=== PATIENT | male | born 1965 | race Caucasian/White ===

== ENCOUNTER 2022-02-14 09:01 | Outpatient (CLI) | payer OTHER, SELFPAY ==
[2022-02-14 10:45] LABS: Albumin* 4.6 g/dL (3.3-5.0); Chloride* 103 mmol/L (96-114)
[2022-02-14 10:46] LABS: Potassium* 4.1 mmol/L (3.6-5.1); Sodium* 138 mmol/L (135-149)
[2022-02-14 10:48] LABS: Aspartate Amino Transferase* 24 U/L (12-35); Bilirubin Total* 0.7 mg/dL (0.1-1.5); Blood Urea Nitrogen* 15 mg/dL (7-30); Carbon Dioxide* 29 mmol/L (20-32); Cholesterol* 182 mg/dL (90-199); Creatinine* 0.8 mg/dL (0.5-1.5); Estimated Glomerular Filt Rate 105 ml/min; Glucose* 100 mg/dL (60-115); Total Protein* 7.1 g/dL (6.0-8.3)
[2022-02-14 10:49] LABS: Alanine Aminotransferase* 20 U/L (4-50); Alkaline Phosphatase* 87 U/L (40-150); HDL Cholesterol* 44 mg/dL (>=40); LDL Cholesterol Calculated 114 mg/dL (<100); Triglycerides* 118 mg/dL (40-149)
[2022-02-14 11:21] LABS: PSA Screen* 1.07 ng/mL (0.10-4.00)
== END 2022-02-14 09:02 | disposition home or self-care (01) ==
PROVIDERS: PCP Family Medicine; Visit Provider Family Medicine
DX: E78.5 Hyperlipidemia, unspecified (principal); Z12.5 Encounter for screening for malignant neoplasm of prostate; Z79.899 Other long term (current) drug therapy
CPT/HCPCS: 80053; 80061; 84153

== ENCOUNTER 2022-06-26 09:10 | Outpatient (REF) | payer OTHER, SELFPAY ==
[2022-06-29 15:49] LABS: Sex Hormone Binding Globulin 25 nmol/L (19-76); Testosterone, Free LC-MS/MS 91.5 pg/mL (47.0-244.0); Testosterone, LC-MS/MS 429 ng/dL (300-890)
== END 2022-06-26 09:11 | disposition home or self-care (01) ==
LOC: NPINS 09:10
PROVIDERS: PCP Family Medicine; Visit Provider Urology
DX: R68.82 Decreased libido (principal)
CPT/HCPCS: 84270; 84402; 84403

== ENCOUNTER 2023-02-07 07:43 | Outpatient (CLI) | payer OTHER, SELFPAY | END 2023-02-07 07:44 | disposition home or self-care (01) | LOC: NFLDREF 02-11 10:06 | PROVIDERS: PCP Family Medicine; Referring Provider Family Medicine; Visit Provider Family Medicine | DX: E78.5 Hyperlipidemia, unspecified (principal); Z12.5 Encounter for screening for malignant neoplasm of prostate | CPT/HCPCS: 80053; 80061; 84153 ==

== ENCOUNTER 2023-06-07 11:29 | Outpatient (CLI) | payer OTHER, SELFPAY ==
--- OUTSIDE RECORDS SUMMARY | 2023-06-10 12:46 | XMS_ITS | Clinical Summary ---
Author Name Unknown Organization [facility] [employer] [facility] [employer] Address [place], [place] [address] Care Team Providers Care Recycling Technician Name Role Phone Dada Corrales MD Primary Care Provider [phone] Allergies Active Allergy Reactions Criticality Noted Date Comments Penicillins *Unknown 07/30/2016 Medications Medication Sig Dispensed Refills Start Date End Date Status propranolol (INDERAL) 10 mg tablet 3 tablets one time. As needed for public speaking 0 07/11/2016 Active HYDROcodone-acetamin ophen, 5-325 mg, (NORCO) per tablet Take 1 tablet by mouth one time if needed Takes at bedtime as needed 0 07/10/2016 Active oxybutynin (DITROPAN) 5 mg tabletIndications:Ur inary frequency TAKE 1 TABLET BY MOUTH DAILY 90 tablet 0 06/26/2017 Active fluticasone (50 mcg per actuation) nasal solution (FLONASE) INL 1 SPRAY IEN BID 0 09/10/2018 Active oxybutynin XL (DITROPAN XL) 5 mg CR tabletIndications:Ur inary frequency Take 1 tablet by mouth once daily. 90 tablet 3 06/15/2019 Active Active Problems Problem Noted Date Diagnosed Date Microscopic hematuria 10/08/2016 Urinary frequency 07/30/2016 Encounters Date Type Department Care Team Description 05/24/2023 Telephone [facility] [address] [place] [address] Dada Corrales MD Error-please disregard from Last 3 Months Social History Tobacco Use Types Packs/Day Years Used Date Smoking Tobacco: Former Cigarettes Smokeless Tobacco: Never Tobacco Cessation:Counseling Given: Yes Comments:quite about 20 years ago Alcohol Use Standard Drinks/Week Comments Not Currently 1 (1 standard drink = 0.6 oz pur e alcohol) twice a year a glass of wine Sex and Gender Information Value Date Recorded Sex Assigned at Not on file Gender Identity Not on file Sexual Orientation Not on file Obstetrics History Last Filed Vital Signs Vital Sign Reading Time Taken Comments Blood Pressure 152/96 06/15/2019 3:01 PM CATH LAB TECH Pulse 56 06/15/2019 3:01 PM CATH LAB TECH Temperature 37.3 ??C (99.2 ??F) 04/16/2018 2 :54 PM CATH LAB TECH Respiratory Rate 16 06/15/2019 3:01 PM CATH LAB TECH Oxygen Saturation 99% 06/15/2019 3:0 1 PM CATH LAB TECH Inhaled Oxygen Concentration - - Weight 82.6 kg (182 lb 1.6 oz) 06/15/2019 3:01 PM CATH LAB TECH Pt weighed with shoes on. Height 182.9 cm (6') 04/15/2017 8:18 AM CATH LAB TECH Body Mass Index 24.7 04/15/2017 8:18 AM CATH LAB TECH Plan of Treatment Health Maintenance Due Date Last Done Comments COVID-19 vaccine series (#1) 1967 Tdap 1978 Depression screening for age 12+ 1979 HIV for age 15-65 1982 Hepatitis C screening for ag e 18-79 1985 Tetanus booster 1987 Colonoscopy through age 75 02/26/2012 Lipids for age 45-75 02/26/2012 Zoster (shingles) series for age 50+ (1 of 2) 2017 BMI (ht and wt on same day) for age 18+ 04/15/2018 04/15/2017, 07/30/2016 Influenza for age 50-64 01/18/2023 Pneumococcal series for age 6-64 Aged Out No longer eligible b ased on patient's age to complete this topic Care Teams Recycling Technician Relationship Specialty Start Date End Date Dada Corrales MD [address] [place] [address] PCP - General Family Practice 07/30/16
== END 2023-06-07 11:30 | disposition home or self-care (01) ==
LOC: NFLDREF 06-10 12:40
PROVIDERS: PCP Family Medicine; Referring Provider Family Medicine; Visit Provider Family Medicine
DX: H11.421 Conjunctival edema, right eye (principal); Z13.29 Encounter for screening for other suspected endocrine disorder
CPT/HCPCS: 83520; 84439; 84443; 84445; 84481

== ENCOUNTER 2023-07-01 08:00 | Outpatient (RCR) | payer OTHER, SELFPAY ==
--- NOTE | 2023-06-11 16:47 | OT.OPOE ---
OT Outpatient Ortho Eval OT Outpatient Ortho Eval* Start: 06/11/23 16:03 Freq: Status: Active Protocol: Document 06/11/23 16:03 STEVIE (Rec: 06/11/23 16:31 LCN [id number]) E-signed By Kassidy Garcia, OTR/L, CLT OT OP Ortho Eval Details Complexity Complexity Low Insurance Information Insurance Information [facility] History/Precautions Current Condition/Medical Diagnosis Referring Provider Dada Corrales Treatment Diagnosis B thumb pain Date of Onset 05/27/23 Other Conditions seasonal allergies. DDD, chronic low back pain and cervicalgia with prior PT. Hyperlipidemia. Ocular migraines. Removal of L shoulder bone spurs/ osteophytes 2014. H/O L lateral epicondylitis. 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 Still having daily 2-4/ 10 level pain during twisting bottle caps, lifting wide files/books in single hand, chopping vegetables, pushing heavy drawers, pinching hold on books while reading. Pain Assessment Pain Present Pain Present Pain Reported Range of Motion and Strength Hand/Finger/Thumb Range of Motion and Strength Hand/Finger/Thumb Range of Motion and WNL ROM for B SH, elbows, Strength wrist planes. Full hook/ table /rolled fist. Opposition tender at 10/10 on Kepangi scale ( MP to CMC 2/10 pressure), no pain with retropulsion, family preservation caseworker or terrell pinch. Pain with 3 pt pinch MP to CMC 2/10 pressure R and 4/10 on L, Z pattern during pinch and strength is 1.5 SD BNL with his pain. Wood Cabinet Finisher is 1 SD BNL possibly antalgic/guarding. Resting position is Z deformity hyper flex of MP, hyper ext of IP; hyperflexes IP to 90 during pinching. Was hypermobile at thumbs and wrists (touching TH to forearm ) as a kid. Moderate squaring at CMC and Heberden's nodes at MP. Tissue texture is gritty surrounding CMC, MP and thick bandlike at B web spaces. Hand Pinch/Wood Cabinet Finisher Strength Hand Left Wood Cabinet Finisher Strength Position 1 (lbs) 84 Wood Cabinet Finisher Strength Position 2 (lbs) 100 Lateral Pinch Strength (lbs) 23 Three Point Pinch (lbs) 18 Right Wood Cabinet Finisher Strength Position 1 (lbs) 81 Wood Cabinet Finisher Strength Position 2 (lbs) 90 Lateral Pinch Strength (lbs) 24 Three Point Pinch (lbs) 19 Upper Extremity Special Tests Tenosynovitis Wrist Finklestein Test Negative Left,Negative Right Degenerative Arthritis Hand Trapeziometacarpal Joint Grind Test Positive Left,Positive Right Upper Extremity Special Tests Comments Comments slight stretch at R Angela's EPL tendon. OT Problems Problems Problems Decreased Strength,Decreased Range of Motion,Pain,Lifting, Gripping,Pinching Problems Comments pain with kavya, pottery Other Problems Opening Containers,Fasteners Patient Potential Excellent Assessment Assessment Assessment With Praveen's osseous changes at B CMC, MP edema, pain, ROM and strength loss of B thumbs limiting daily tasks, he would benefit from skilled OT to address these areas. 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 Occupational Therapy Treatment Plan - OP Potential Rehabilitation Potential Excellent Set Goals Goals Set with Patient Yes Goals Goals In 8 weeks, Praveen will demonstrate:? 1) Decreased pn to <2/10 80% of the time with sustained gripping, lifting files, reading books and chopping vegetables. 2) I HEP for stretching, gradual strengthening and self mgmt strategies. 3) improved B family preservation caseworker strength to 95# and 3 pt pinch to 20# with L thumb pain < 1/10. 4)??Pt to be fit with functional bracing (for CMC/MP ,) and use adaptive strategies to protect joint integrity to support less pain with ADL. Treatment Plan Treatment Plan Evaluation,Edema Control,Joint Mobilization,Manual Therapy, Splinting,Ultrasound, Therapeutic Exercise,Self Care /Home Management,Education Expected Frequency 1-2x Week Expected Duration 4-6 Weeks Home Program Home Program Home Program Initiated Home Program Specifics Oval 8 size 13 splints for use during daytime heavy tasks and TH joint blocking to AROM glide exercises
--- NOTE | 2023-07-01 16:36 | OT.OPODN ---
OT Outpatient Ortho Daily Note OT Outpatient Ortho Daily Note* Start: 06/11/23 16:03 Freq: Status: Active Protocol: Document 07/01/23 11:56 LCN (Rec: 07/01/23 12:12 LCN [id number]) E-signed By Kassidy Garcia, OTR/L, CLT Type of Note Type of Note Type of Note Daily Note Visit Number 5 Insurance Information Insurance Information [facility] History/Precautions Current Condition/Medical Diagnosis Referring Provider Dada Corrales Treatment Diagnosis B thumb pain Date of Onset 05/27/23 Other Conditions seasonal allergies. DDD, chronic low back pain and cervicalgia with prior PT. Hyperlipidemia. Ocular migraines. REmoval of L shoulder bone spurs/ osteophytes 2014. H/O L lateral epicondylitis. 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 Has modified how he lifts things in the library archives. Pt agrees he is ready for OT d/c at this time, but will will leave his account open for 60 days. Pain Assessment Pain Present Pain Present Pain Reported OT OP Daily Ortho Note/Assessment Manual Therapy Manual Therapy Minutes (minutes) 15 Manual Therapy Comments OTR cont w IASTM with Graston #6 to mobilize soft tissue surrounding joint capsule,? ligament structures and muscle groups to support freedom of movement and healing of structures of R and L CMC, MP, IP webspace areas. LLPS at each joint level. Self-Care/Home Management Self-Care/Home Management Minutes ( 16 minutes) Self-Care/Home Management Comments Reveiwed self mgmt strategies for flare ups. (contrast baths , joint glidse, stetches, use splint more) Pt instructed in self IASTM using home based tool and thicker cream?(for longitudinal fibers, circular around bony prominences/ridges of gritty tissue/prox to MP/ CMC and cross fiber, micronodules tender at CMC base and at MP margins, do <? 10-15 min at a time. QOD, be mindful of pressure, avoid if already tender). Able to return self technique with good safe angle 30 degrees. Reviewed principles of joint protection using hand out, use of large tools instead of small joints, larger body joints, thumbs up positions, avoiding excessive ulnar deviation, wringing or carrying dangling loads/ handled bags for extended periods, and use of CMC stabilizer splints to support externally/reduce muscle overfiring around CMC joints. Introduced to ratcheCrowdcast pruners, azeri handled gardening tools, mechanical jar fiberglass ski maker, package opening set. Ultrasound Ultrasound Minutes (minutes) 8 Ultrasound Location & Joint Position L MP to CM web spaces, open Ultrasound Frequency & Mode 1 MHz Pulsed Intensity (w/cm2) 1.7 Ultrasound Comments as needed to support reduction of edema for tissue healing, improved circulation and tissue mobility. Total Occupational Therapy Time Occupational Therapy Minutes 39 Home Program Home Program Home Program Compliant Home Program Specifics 06/24/23--adductor releases with ship clip and WR EX paryaer4 stretch, [place]= UD stretch for B wrists 06/19/23-- contrast baths, CMC ADD web space stretches. Oval 8 size 12 splints for use during daytime heavy tasks and TH joint blocking to AROM glide exercises Range of Motion and Strength Hand/Finger/Thumb Range of Motion and Strength Hand/Finger/Thumb Range of Motion and WNL ROM for B SH, elbows, Strength wrist planes. Full hook/ table /rolled fist. Opposition tender at 10/10 on Kepangi scale ( MP to CMC 2/10 pressure), no pain with retropulsion, supervisor shrimp pond or terrell pinch. Pain with 3 pt pinch MP to CMC 2/10 pressure R and 4/10 on L, Z pattern during pinch and strength is 1.5 SD BNL with his pain. Marine Firer is 1 SD BNL possibly antalgic/guarding. Resting position is Z deformity hyper flex of MP, hyper ext of IP; hyperflexes IP to 90 during pinching. Was hypermobile at thumbs and wrists (touching TH to forearm ) as a kid. Moderate squaring at CMC and Heberden's nodes at MP. Tissure texture is gritty surrounding CMC, MP and thick bandlike at B web spaces. Hand Pinch/Marine Firer Strength Hand Left Marine Firer Strength Position 1 (lbs) 95 Marine Firer Strength Position 2 (lbs) 105 Lateral Pinch Strength (lbs) 23 Three Point Pinch (lbs) 23 Right Marine Firer Strength Position 1 (lbs) 90 Marine Firer Strength Position 2 (lbs) 90 Lateral Pinch Strength (lbs) 25 Three Point Pinch (lbs) 21 Upper Extremity Special Tests Tenosynovitis Wrist Finklestein Test Negative Left,Negative Right Degenerative Arthritis Hand Trapeziometacarpal Joint Grind Test Positive Left,Positive Right Upper Extremity Special Tests Comments Comments slight stretch at R Angela's EPL tendon. OT Problems Problems Problems Decreased Strength,Decreased Range of Motion,Pain,Lifting, Gripping,Pinching Problems Comments pain with kavya, pottery Other Problems Opening Containers,Fasteners Patient Potential Excellent Assessment Assessment Assessment Pt ready for d/c per goals met above. With Praveen's osseous changes at B CMC, MP edema, pain, ROM and strength loss of B thumbs limiting daily tasks, he would benefit from skilled OT to address these areas. Pt did benefit from OTC thumb spica splints at first ( may have had some tendon issues at that point) and now having OA pattern changes in B thumbs. Occupational Therapy Treatment Plan - OP Potential Rehabilitation Potential Excellent Set Goals Goals Set with Patient Yes Goals Goals After 5 visits of OT, Praveen will demonstrates:? 1) Decreased pn to <2/10 80% of the time with sustained gripping, lifting files, reading books and chopping vegetables. GOAL MET 07/01/23, 0/10 PN with Marine Firer and Pinch B hands. 2) I HEP for stretching, gradual strengthening and self mgmt strategies. 3) improved B supervisor shrimp pond strength to 95# and 3 pt pinch to 20# with L thumb pain < 1/10. GOAL MET per above 07/01/23 4)??Pt to be fit with functional bracing (for CMC/MP ,) and use adaptive strategies to protect joint integrity to support less pain with ADL. GOAL MET per above-- responded well to Oval 8 correction of IP flexion pattern size 12's issued for B sides. Treatment Plan Treatment Plan Evaluation,Edema Control,Joint Mobilization,Manual Therapy, Splinting,Ultrasound, Therapeutic Exercise,Self Care /Home Management,Education Expected Frequency 1-2x Week Expected Duration 4-6 Weeks Comment Summary D/C from OT today, but will hold chart open through 08/29/23 pending return to gardening tasks. Occupational Therapy Billing Units Treatment Minutes Timed Treatment Minutes 39 Total Treatment Minutes 39 Billing Units Manual Therapy 1 Self Care/Home Management 1 Ultrasound 1 Discharge Note Discharge Note Discharge Summary per above goal section Date of First Visit for Therapy 06/11/23 Date of Last Visit for Therapy 07/01/23 Initial Primary Functional Limitations/ Praveen Danii DOMINGO is an active 58 y Concerns /o male who started having B MP to CMC thumb pain after return to fall video kavya season on his Nintendo Switch and starting wearing braces on one side for 3 weeks, then the other side. Still having daily 2-4/ 10 level pain during twisting bottle caps, lifting wide files/books in single hand, chopping vegetables, pushing heavy drawers, pinching hold on books while reading. Interventions Provided During Treatment Evaluation,Edema Control,Joint Mobilization,Manual Therapy, Splinting,Ultrasound, Therapeutic Exercise,Self Care /Home Management,Education Recommendations/Reason for Discharge Met All Therapy Goals
== END 2023-10-29 23:59 | disposition home or self-care (01) ==
PROVIDERS: PCP Family Medicine; Visit Provider Family Medicine
DX: M79.641 Pain in right hand (principal); M79.642 Pain in left hand; M79.645 Pain in left finger(s); M79.644 Pain in right finger(s); Z51.89 Encounter for other specified aftercare
CPT/HCPCS: 97035; 97110; 97140; 97165; 97530; 97535; X5282

== ENCOUNTER 2023-07-03 07:58 | Outpatient (CLI) | payer OTHER, SELFPAY ==
--- OUTSIDE RECORDS SUMMARY | 2023-07-03 08:01 | XMS_ITS | Clinical Summary ---
Author Name Unknown Organization [facility] & [facility] [employer] Address [place], [place] [address] Care Team Providers Care Court Commissioner Name Role Phone Dada Corrales MD Primary Care Provider [phone] Allergies Active Allergy Reactions Criticality Noted Date [...] Type Department Care Team Description 05/24/2023 Telephone [facility] [address] [place] [address] Dada Corrales MD Error-please disregard from Last [...] Comments Blood Pressure 152/96 06/15/2019 3:01 PM BARIATRIC PROGRAM COORDINATOR Pulse 56 06/15/2019 3:01 PM BARIATRIC PROGRAM COORDINATOR Temperature 37.3 ??C (99.2 ??F) 04/16/2018 2 :54 PM BARIATRIC PROGRAM COORDINATOR Respiratory Rate 16 06/15/2019 3:01 PM BARIATRIC PROGRAM COORDINATOR Oxygen Saturation 99% 06/15/2019 3:0 1 PM BARIATRIC PROGRAM COORDINATOR Inhaled Oxygen Concentration - - Weight 82.6 kg (182 lb 1.6 oz) 06/15/2019 3:01 PM BARIATRIC PROGRAM COORDINATOR Pt weighed with shoes on. Height 182.9 cm (6') 04/15/2017 8:18 AM BARIATRIC PROGRAM COORDINATOR Body Mass Index 24.7 04/15/2017 8:18 AM BARIATRIC PROGRAM COORDINATOR Plan of Treatment Health Maintenance Due Date [...] age to complete this topic Care Teams Court Commissioner Relationship Specialty Start Date End Date Dada Corrales MD [address] [place] [address] PCP - General Family Practice 07/30/16
--- NOTE | 2023-07-03 08:15 | MR_ITS ---
Final Report Patient: KATRINA NAIK III Facility:?[facility] Patient ID:?[id number] Site Patient ID:?[id number]. Site :?[id number] Study:?MRI Orbits W/ and W/O Cont 20 CC DOATERM-07/03/2023 9:40:59 AM Ordering Physician:MARTHA MURILLO Final Report: INDICATION: Conjunctival edema. TECHNIQUE: Multiplanar multisequence MR imaging of the orbits prior to and following intravenous contrast. COMPARISON: None. FINDINGS: The extra-ocular muscles and lacrimal glands are symmetric in size and enhancement. No intraorbital mass or edema. No signal abnormality or pathologic enhancement within the optic nerves. No mass effect on the optic chiasm. The globes are symmetric. Limited images through the brain are without pathologic intracranial enhancement. IMPRESSION: Unremarkable MRI of the orbits. Dictated by Darvin Nowak MD @ 07/09/2023 10:05:58 AM (Electronic Signature)
== END 2023-07-03 07:59 | disposition home or self-care (01) ==
LOC: MRI 08:00
PROVIDERS: PCP Family Medicine; Visit Provider Family Medicine
DX: H11.421 Conjunctival edema, right eye (principal)
CPT/HCPCS: 70543; A9575

== ENCOUNTER 2024-03-03 07:30 | Outpatient (CLI) | payer OTHER, SELFPAY ==
--- OUTSIDE RECORDS SUMMARY | 2024-03-03 15:56 | XMS_ITS | Clinical Summary ---
Author Organization [facility] [employer] Address [place], [place] [address] Care Team Providers Care Assistant Film Editor Name Role Phone Dada Corrales MD Primary Care Provider [phone] Allergies Active Allergy Reactions Criticality Noted Date Comments Penicillins *Unknown 07/30/2016 Medications Medication Sig Dispensed Refills Start Date End Date Status propranolol (INDERAL) 10 mg tablet 3 tablets one time. As needed for public speaking 07/11/2016 Active HYDROcodone-acetamin ophen, 5-325 mg, (NORCO) per tablet Take 1 tablet by mouth one time if needed Takes at bedtime as needed 07/10/2016 Active oxybutynin (DITROPAN) 5 mg tabletIndications:Ur inary frequency TAKE 1 TABLET BY MOUTH DAILY 90 tablet 06/26/2017 Active fluticasone (50 mcg per actuation) nasal solution (FLONASE) INL 1 SPRAY IEN BID 09/10/2018 Active oxybutynin XL (DITROPAN XL) 5 mg CR tabletIndications:Ur inary frequency Take 1 tablet by mouth once daily. 90 tablet 3 06/15/2019 Active Active Problems Problem Noted Date Diagnosed Date Microscopic hematuria 10/08/2016 Urinary frequency 07/30/2016 Social History Tobacco Use Types Packs/Day Years [...] Comments Blood Pressure 152/96 06/15/2019 3:[address] Pulse 56 06/15/2019 3:[address] Temperature 37.3 ??C (99.2 ??F) 04/16/2018 2 :[address] Respiratory Rate 16 06/15/2019 3:[address] Oxygen Saturation 99% 06/15/2019 3:0 [address] Inhaled Oxygen Concentration - - Weight 82.6 kg (182 lb 1.6 oz) 06/15/2019 3:[address] Pt weighed with shoes on. Height 182.9 cm (6') 04/15/2017 8:[address] Body Mass Index 24.7 04/15/2017 8:18 [address] Plan of Treatment Health Maintenance Due Date Last Done Comments Tdap 1978 Depression screening for age 12+ 1979 HIV for age 15-65 1982 Hepatitis C screening for ag e 18-79 1985 Tetanus booster 1987 Colonoscopy through age 75 02/26/2012 Lipids for age 45-75 02/26/2012 Zoster (shingles) series for age 50+ (1 of 2) 2017 BMI (ht and wt on same day) for age 18+ 04/15/2018 04/15/2017, 07/30/2016 COVID-19 vaccine series (2023- season) 2024 Influenza for age 50-64 01/19/2024 Pneumococcal series for age 6-64 Aged Out No longer eligible b ased on patient's age to complete this topic Care Teams Assistant Film Editor Relationship Specialty Start Date End Date Dada Corrales MD [address] [place] [address] PCP - General Family Practice 07/30/16
== END 2024-03-03 07:31 | disposition home or self-care (01) ==
LOC: NFLDREF 15:54
PROVIDERS: PCP Family Medicine; Referring Provider Family Medicine; Visit Provider Family Medicine
DX: E78.5 Hyperlipidemia, unspecified (principal); Z12.5 Encounter for screening for malignant neoplasm of prostate
CPT/HCPCS: 80053; 80061; G0103

== ENCOUNTER 2024-06-25 11:30 | Outpatient (RCR) | payer BC, SELFPAY | END 2024-08-05 13:32 | disposition home or self-care (01) | PROVIDERS: PCP Family Medicine; Visit Provider Orthopaedic Surgery Sports Medicine | DX: M75.112 Incomplete rotator cuff tear or rupture of left shoulder, not specified as traumatic (principal); M25.512 Pain in left shoulder; Z51.89 Encounter for other specified aftercare | CPT/HCPCS: 97110; 97140; 97161 ==

== ENCOUNTER 2024-07-13 07:09 | Outpatient (CLI) | payer BC, SELFPAY | END 2024-07-13 07:10 | disposition home or self-care (01) | LOC: MRI 07:09 | PROVIDERS: PCP Family Medicine; Visit Provider Orthopaedic Surgery Sports Medicine | DX: M25.512 Pain in left shoulder (principal); M75.102 Unspecified rotator cuff tear or rupture of left shoulder, not specified as traumatic; M75.52 Bursitis of left shoulder; M19.012 Primary osteoarthritis, left shoulder | CPT/HCPCS: 73221 ==

== ENCOUNTER 2024-10-07 09:39 | Day surgery (SDC) | payer BC, SELFPAY ==
[2024-10-07] VITALS (16 sets, daily range): BP systolic 130–172; BP diastolic 80–110; PULSE 67–87; RESP 12–17; TEMP 36.3–36.7; O2SAT 91–98; BMI 25.3
[2024-10-07] MEDS: LACTATED RINGERS 1000 ML 1,000 ML 100 ML IV ×2 (09:45→14:00)
--- NOTE | 2024-10-07 10:11 | W.PM.H&PU ---
History & Physical Update History & Physical Update H&P Reviewed and patient assessed: No changes noted
[2024-10-07] MEDS: SODIUM CHLORIDE 0.9 % (FLUSH) 10 ML SYRINGE IVF (10:19)
[2024-10-07] MEDS: MIDAZOLAM HCL 1 MG/ML inj IVP (12:13)
[2024-10-07] MEDS: fentaNYL 100 MCG/2 ML inj IVP (12:13)
--- NOTE | 2024-10-07 12:16 | P.ANES_ITS ---
Anesthesia Charges Start Date/Time Anesthesia Start Date: 10/07/24 Anesthesia Start Time: 12:33 Stop Date/Time Anesthesia Stop Date: 10/07/24 Anesthesia Stop Time: 14:55 Coding CPT Codes CPT Codes: ANESTH SURGERY OF SHOULDER - 07996 ([id number]) P2 - PATIENT W/MILD SYST DISEASE, QK - CLERK OPERATOR 2-4 CNCRNT ANES PROC, QX - EDI PROGRAMMER SVC W/ MD MED DIRECTION
--- NOTE | 2024-10-07 12:16 | W.PM.NB ---
Nerve Block Nerve Block Time Seen by Provider: 12:15 Date Seen: 10/07/24 Type of block requested by surgeon for post-operative analgesia: supraclavicular Time out performed: Yes Verification of patient name: Yes Verification of date of : Yes Site marking: site marked Name of person performing procedure: Tony Continuous monitoring Was continuous monitoring of O2 sat, B/P, night monitor, recorded every 15 minutes?: Yes Procedure Checklist: sterile prep, needles and gloves Ultrasound guided. Images saved: Yes Medications given in 5ml increments after negative aspiration: Ropivicaine %: 0.5 mL: 20 Needle gauge: 22 Precedex (mcg): 25 Patient tolerated procedure well: Yes Block Charges Block Charge (with Pro Fee): Brachial Plexus Use of Ultrasound Machine for Block: Yes- US Guidance/pain block
--- NOTE | 2024-10-07 12:16 | W.ANESCHARGE ---
Anesthesia Charges Start Date/Time Anesthesia Start Date: 10/07/24 Anesthesia Start Time: 12:33 Stop Date/Time Anesthesia Stop Date: 10/07/24 Anesthesia Stop Time: 14:55 Coding CPT Codes CPT Codes: ANESTH SURGERY OF SHOULDER - 89500 ([id number]) P2 - PATIENT W/MILD SYST DISEASE, QK - STONE HAND 2-4 CNCRNT ANES PROC, QX - PUSH CONNECTOR ASSEMBLER SVC W/ MD MED DIRECTION
--- NOTE | 2024-10-07 12:25 | SUR.PREOP ---
TIME?OUT:?1212 PT/Fifi Nicholson RN/Dr. Tony MDA?VERIFICATION?OF?SURGICAL?SITE left shoulder,?PROCEDURE,?AND?CONSENT OBTAINED?PRIOR?TO?INVASIVE?PROCEDURE.
[2024-10-07] MEDS: CEFAZOLIN 2 GM in 0.9 % SODIUM CHLORIDE Mini-bag 100 ML IVPB (12:48)
--- NOTE | 2024-10-07 12:49 | P.ANES_ITS ---
Anesthesia Charges Start Date/Time Anesthesia Start Date: 10/07/24 Anesthesia Start Time: 12:33 Stop Date/Time Anesthesia Stop Date: 10/07/24 Anesthesia Stop Time: 14:55 Coding CPT Codes CPT Codes: ANESTH SURGERY OF SHOULDER - 63802 ([id number]) P2 - PATIENT W/MILD SYST DISEASE, QK - MANAGER AUTO 2-4 CNCRNT ANES PROC, QX - HEEL COVER SPLITTER SVC W/ MD MED DIRECTION
--- NOTE | 2024-10-07 12:49 | W.ANESCHARGE ---
Anesthesia Charges Start Date/Time Anesthesia Start Date: 10/07/24 Anesthesia Start Time: 12:33 Stop Date/Time Anesthesia Stop Date: 10/07/24 Anesthesia Stop Time: 14:55 Coding CPT Codes CPT Codes: ANESTH SURGERY OF SHOULDER - 76067 ([id number]) P2 - PATIENT W/MILD SYST DISEASE, QK - DIRECTOR OF PARKS AND RECREATION 2-4 CNCRNT ANES PROC, QX - BLADE SHARPENER SVC W/ MD MED DIRECTION
[2024-10-07] MEDS: EPINEPHrine 1 MG in SODIUM CHLORIDE IRRIG SOLUTION 3,000 ML 9003 MG IRRIGATION ×4 (13:03→14:03)
--- NOTE | 2024-10-07 14:52 | PM.ORPRC ---
Procedure Note Date of procedure: 10/07/24 Procedure: PREOPERATIVE DIAGNOSES: 1. Left shoulder rotator cuff tear. 2. Left shoulder subacromial impingement syndrome. 3. Left shoulder labral tearing (anterior, superior, posterior) POSTOPERATIVE DIAGNOSES: 1. Left shoulder rotator cuff tear - high-grade partial-thickness upper border subscapularis as well as essentially a PASTA supraspinatus rotator cuff tear 2. Left shoulder subacromial impingement syndrome. 3. Left shoulder labral tearing (anterior, superior, posterior) NAME OF OPERATION: 1. Left shoulder arthroscopic rotator cuff repair - upper border subscapularis and high-grade partial-thickness supraspinatus 2. Left shoulder arthroscopic limited glenohumeral debridement 3. Left shoulder arthroscopic bursectomy, subacromial decompression/partial acromioplasty. SURGEON: Brock Machuca MD BIOPHYSICS PROFESSOR: Jered Ramos PA-C. Of note, a skilled video library assistant was critical for this case to aide in patient positioning, suture manipulation, arm positioning, instrument positioning, and closure. ANESTHESIA: General plus preoperative supraclavicular block. EBL: 25 mL IMPLANTS: Arthrex 4.75 mm BioComposite SwiveLock suture anchor (x1); Arthrex 5.5 mm BioComposite SwiveLock suture anchor (x1) Arthrex 2.6 mm knotless FiberTak RC (x2); Arthrex 2.6 mm standard FiberTak RC (x1) COMPLICATIONS: None evident INDICATIONS: The patient is a pleasant, 59-year-old male who has experienced left shoulder pain that has been increasing in recent time. Physical exam and imaging were consistent with a rotator cuff tear. Given their findings, as well as the weakness and pain, and inadequate response to nonoperative management, recommendation was made for surgery. FINDINGS: Exam under anesthesia revealed stable shoulder with excellent range of motion. The diagnostic arthroscopy revealed healthy chondral surfaces of the glenohumeral joint. The Subscapularis tendon was torn from its upper border with mild retraction. The long head of the biceps tendon was overall quite healthy with only mild low-grade partial-thickness tearing both at the origin similar to a type 1 slap tear, as well as at the superior bicipital groove region. The superior rotator cuff tendon was found to be torn and high-grade partial-thickness manner through majority of the tendon. From the joint side we could see it lifting off the greater tuberosity approximately 5-6 mm. From the bursal side the tissue looked to be intact but was very thin and frail especially in the far anterior aspect. The labrum was degenerative frayed and torn anterior, superior, and posterior aspects. No loose bodies were identified within the pouch or subscapularis recess. PROCEDURE: Following a thorough discussion of risks, benefits, and alternatives, consent was obtained and the left shoulder was marked. The patient was brought to the operating room and placed supine on the operating table. Induction of anesthesia was completed after preoperative supraclavicular block was administered in preop holding. Appropriate time out was performed identifying proper patient, site, and procedure. 2 g IV Ancef was administered within 1 hour of incision preoperatively. The left upper extremity was prepped and draped in the appropriate sterile fashion using ChloraPrep prep. This was after the patient was positioned in the beach chair with their head in neutral alignment and all bony prominences well padded. The shoulder was insufflated with 20mL of normal saline via an 18g spinal needle from a posterior approach. An 11 blade skin incision allowed a blunt trochar to be inserted and diagnostic arthroscopy to be performed with the findings as noted above. An anterior portal was established with an outside in technique. This allowed the probe to be inserted and confirm the diagnostic arthroscopic findings. The shaver was then inserted and allowed debridement of the anterior, posterior, and superior labrum. Following this, the upper border subscapularis was repaired after debriding the lesser tuberosity with the shaver and Dille cautery. Subscapularis was captured in horizontal mattress fashion with a fiber tape suture. The tails were brought to a single anchor in the lesser tuberosity with excellent reapproximation of the subscap tendon and good excursion/tension. Thereafter, the subacromial space was entered. Here, a complete bursectomy and partial acromioplasty/subacromial decompression was performed with a combination of radiofrequency ablator, the shaver, and a 5.5 mm bur. Further inspection of the supraspinatus and infraspinatus rotator cuff was performed. This identified the tear as noted above. The margins of the tear were debrided, and the greater tuberosity was debrided with a combination of the apollo cautery, shaver, and bur on reverse setting. After gentle decortication, 2 separate FiberTak knotless anchors were placed for the pasta repair. The knotless mechanism sutures were swapped, engaged, and cinched down. The FiberTape tails from the same anchors were ventrally used for a single lateral row 5.5 mm SwiveLock anchor to help with footprint compression. Beyond that, there was also noted to be more tearing further anterior. Therefore, a standard FiberTak RC anchor was placed adjacent to the biceps tendon. The tails were passed through the more anterior tissue to allow it to be supported in this rotator interval. So as not to the cross the tissue over the biceps and trap the biceps, SutureTape tails were passed independently and tied for [id number] repair of this rotator interval week tissue. The rotator cuff showed excellent reapproximation of the greater tuberosity with good security upon probing. Prior to anchor owner operator tanker truck driver removal, the eyelet sutures were tugged on for each anchor and found that the anchor had excellent stability within the bone. The shoulder was placed through range of motion and found to be stable. The rotator cuff was re-probed and found to be stable. Instruments were removed. Excess fluid was drained, closure performed with 4-0 Monocryl and Steri-Strips. Dressings were applied. Sling was applied. The patient was awoken from anesthesia and transferred to the PACU in stable condition. A skilled video library assistant was critical for this case to aid in patient positioning, limb positioning, skill to manipulate arthroscopic instruments and camera, suture management, patient safety, and closure. PLAN: 1. Elbow, forearm, wrist and digit range of motion of operative extremity as tolerated. 2. Encouraged ice. 3. Oxycodone for pain as needed. 4. Sling at all times except for ROM and showering. 5. Follow up with PA visit in 1-2 weeks for wound check. Initiate physical therapy following that visit for passive range of motion. Initiate active assisted range of motion at 3-4 weeks. May do pendulums now.
--- NOTE | 2024-10-07 15:38 | SUR.PHASEII ---
Patient states he was due to refill his Hydrocodone-Acetaminophen prescription from Dr. Corrales 4 or 5 days ago, but didn't because he knew this procedure was coming up.
--- NOTE | 2024-10-07 15:43 | SUR.PHASEII ---
1529: On arrival to Phase II, pt states he felt nauseous. No nausea reported in Phase I. Patient offered anti-nausea medications and decline emely this time. He would like to see how it goes. Nausea improved once pt rested in bed without movement. Provided emesis bag and call light. Verbalizes understanding to notify nurse if nausea worsens.
[2024-10-07] MEDS: METOCLOPRAMIDE HCL 5 MG/ML INJ 10 MG IVP (16:02)
--- NOTE | 2024-10-07 16:31 | SUR.PHASEII ---
1600: Patient states still nauseous. 10 mg Reglan given. Discharge instructions reviewed with patient and Arie. Questions answered. PAtient sitting at edge of bed. Patient has chronic neck pain, sling adjusted. Patient states it's more comfortable.
--- NOTE | 2024-10-07 16:39 | SUR.PHASEII ---
1630: Patient resting in recliner. When asked regarding nausea, patient states he's fine. Declines zofran. Patient eating stephen crackers and tolerating water. Pt to use call light when ready to use restroom.
--- NOTE | 2024-10-07 17:00 | SUR.PHASEII ---
1635: Call light on to use restroom. Pt to bathroom via wheelchair. Voided. Denies nausea. REturned to room via wheelchair. Trawl Net Maker to pull up car.
== END 2024-10-07 16:55 | disposition home or self-care (01) ==
LOC: OR 09:41
PROVIDERS: PCP Family Medicine; Visit Provider Orthopaedic Surgery Sports Medicine
PROC: (CPT 29805; principal; 2024-10-07 12:30)
DX: M75.102 Unspecified rotator cuff tear or rupture of left shoulder, not specified as traumatic (principal); M75.42 Impingement syndrome of left shoulder; S43.432A Superior glenoid labrum lesion of left shoulder, initial encounter; G89.18 Other acute postprocedural pain
CPT/HCPCS: 29827; 29826; 29822; 01630; 64415; 76942; C1713; J0171; J0330; J0690; J1100; J2250; J2371; J2704; J2710; J2765; J3010; J3490; J7120; L3670

== ENCOUNTER 2024-10-08 00:22 | Emergency (ER) | payer BC, SELFPAY ==
--- OUTSIDE RECORDS SUMMARY | 2024-10-08 00:24 | XMS_ITS | Clinical Summary ---
Author Organization [facility] Address [address] [place] [id number] Care Team Providers Care Medical Insurance Collector Name Role Phone Dada Corrales MD Primary Care Provider [phone] Allergies Active Allergy Reactions Criticality Noted Date Comments Penicillins *Unknown 07/30/2016 Medications propranolol (INDERAL) 10 mg tablet 3 tablets one time. As needed for public speaking 07/11/2016 Active HYDROcodone-armani taminophen, 5-325 mg, (NORCO) per tablet Take 1 tablet by mouth one time if needed Takes at bedtime as needed 07/10/2016 Active oxybutynin (DITROPAN) 5 mg tabletIndicatio ns:Urinary frequency TAKE 1 TABLET BY MOUTH DAILY 90 tablet 06/26/2017 Active fluticasone (50 mcg per actuation) nasal solution (FLONASE) INL 1 SPRAY IEN BID 09/10/2018 Active oxybutynin XL (DITROPAN XL) 5 mg CR tabletIndicatio ns:Urinary frequency Take 1 tablet by mouth once [...] Recorded Sex Assigned at Not on file Legal Sex Male 10:46 AM CDT Gender Identity Not on file Sexual Orientation Not on file Obstetrics History Last Filed Vital Signs Vital Sign Reading Time Taken Comments Blood Pressure 152/96 06/15/2019 3:01 PM 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 Height 182.9 cm (6') 04/15/2017 8:18 AM [employer]GER Body Mass Index 24.7 04/15/2017 8:18 AM [employer]GER Plan of Treatment Health Maintenance Due Date Last Done Comments Tdap 1978 Depression screening for age 12+ 1979 HIV for age 15-65 1982 Hepatitis C screening for age 18-79 1985 Tetanus booster 1987 Colonoscopy through age 75 02/26/2012 Lipids for age 45-75 02/26/2012 Pneumococcal series for age 50+ (1 of 1 - PCV) 2017 Zoster (shingles) series for age 50+ (1 of 2) 2017 BMI (ht and wt on same day) for age 18+ 04/15/2018 1 06/15/2016, 07/30/2016 COVID-19 vaccine series ( season) 2024 Influenza Vaccine (Season Ended) 2025 Insurance [employer] [id number] Care Teams Medical Insurance Collector Relationship Specialty Start Date End Date Dada Corrales MD [address] [place] [id number] PCP - General Family Practice 07/30/16
--- NOTE | 2024-10-08 00:25 | ED.MALEGU ---
HPI - Male Genitourinary General Time Seen by Provider: 00:38 Date Seen: 10/08/24 Chief complaint: Urogenital Problems, Male Stated complaint: Surgery yesterday/unable to urinate Time Seen by Provider: 10/08/24 00:25 Source: patient Mode of arrival: ambulatory Limitations: no limitations History of Present Illness HPI Narrative: 59-year-old male who comes in with urinary retention. Patient underwent shoulder surgery yesterday and has been able to void since yet. Reports he was previously seen by Urology and was on Flomax years ago but has not been on anything recently. Took oxycodone earlier. Related Data Previous Rx's ?Medication ?Instructions ?Recorded fluticasone propionate 50 1 spray intranasal BID PRN nasal 03/26/24 mcg/actuation nasal congestion #48 grams spray,suspension propranolol 10 mg tablet 10 - 40 mg (1 - 4 x 10 mg) PO 03/26/24 .COMPLEX PRN anxiety #90 tabs hydrocodone 5 mg-acetaminophen 325 1 tab PO QDAY PRN pain #30 tabs 09/03/24 mg tablet ondansetron 4 mg disintegrating 4 mg PO Q8H PRN nausea and 10/07/24 tablet vomiting #15 tabs oxycodone 5 mg tablet 5 mg PO Q4-8H PRN pain #25 tabs 10/07/24 sennosides 8.6 mg-docusate sodium 1 tab-cap PO BID #30 tabs 10/07/24 50 mg tablet (Senna-S) tamsulosin 0.4 mg capsule (Flomax) 0.4 mg PO QHS #30 caps 10/08/24 Allergies Allergy/AdvReac Type Severity Reaction Status Date / Time penicillin V Allergy Mild Unknown- Verified 10/07/24 09:50 occured as a young child [facility] Medical History (Updated 10/08/24 @ 00:52 by Dickson Swann MD) Tobacco use (10/12/09) ?Z72.0 - Tobacco use (ICD-10) Chronic neck and back pain ?M54.2 - Cervicalgia (ICD-10) ?M54.9 - Dorsalgia, unspecified (ICD-10) ?G89.29 - Other chronic pain (ICD-10) Degenerative disk disease (10/12/09) Obstructive uropathy ?N13.9 - Obstructive and reflux uropathy, unspecified (ICD-10) Insomnia (10/12/09) ?G47.00 - Insomnia, unspecified (ICD-10) Hyperlipidemia ?E78.5 - Hyperlipidemia, unspecified (ICD-10) Ocular migraine ?G43.109 - Migraine with aura, not intractable, without status migrainosus (ICD-10) Seasonal allergies (10/12/09) ?J30.2 - Other seasonal allergic rhinitis (ICD-10) Shoulder impingement ?M75.40 - Impingement syndrome of unspecified shoulder (ICD-10) Social anxiety disorder (01/14/12) ?F40.10 - Social phobia, unspecified (ICD-10) Ulnar neuropathy ?G56.20 - Lesion of ulnar nerve, unspecified upper limb (ICD-10) Neuropathy, arm ?G56.90 - Unspecified mononeuropathy of unspecified upper limb (ICD-10) Overactive bladder ?N32.81 - Overactive bladder (ICD-10) Bilateral hand pain ?M79.641 - Pain in right hand (ICD-10) ?M79.642 - Pain in left hand (ICD-10) Chemosis of right conjunctiva ?H11.421 - Conjunctival edema, right eye (ICD-10) Rotator cuff tear, left ?M75.102 - Unspecified rotator cuff tear or rupture of left shoulder, not specified as traumatic (ICD-10) Arthritis of left acromioclavicular joint ?M19.012 - Primary osteoarthritis, left shoulder (ICD-10) Tendinopathy of left biceps ?M67.922 - Unspecified disorder of synovium and tendon, left upper arm (ICD-10) Labral tear of shoulder ?S43.439A - Superior glenoid labrum lesion of unspecified shoulder, initial encounter (ICD-10) Sleep apnea ?G47.30 - Sleep apnea, unspecified (ICD-10) Surgical History (Updated 10/07/24 @ 16:03 by Sarah Jordan ~ INSURANCE ACCOUNT REPRESENTATIVE, INSURANCE ACCOUNT REPRESENTATIVE) History of arthroscopy of left shoulder (10/07/24) ?Z98.890 - Other specified postprocedural states (ICD-10) History of colonoscopy ?Z98.890 - Other specified postprocedural states (ICD-10) History of arthroscopy of right shoulder (11/23/14) ?Z98.890 - Other specified postprocedural states (ICD-10) Family History Mother Hx of breast cancer Heart problem High blood pressure Stroke Renal failure COPD (chronic obstructive pulmonary disease) Social History (Reviewed 09/01/24 @ 08:36 by Jocelin Bland ~ [facility], [facility]) Narrative: Family history: Mother with breast cancer at age 50. She had heart arrhythmia and carotid artery stenosis. She of COPD and renal failure and had a stroke at 69. She also had hypertension. Father is alive. What is your current living situation?: I presently have a place to live Problems where you live: no known problems In the past 12 months, utilities in danger of being shut off: no In past 12 months, lack of transportation kept you from medical appts, meetings, work, or getting things needed for daily living: no In the past 12 mos, have been you worried that your food would run out before you had money to buy more?: never true In the past 12 mos, the food you bought just didn't last and you didn't have money to buy more?: never true Smoking Status: Never smoker Do you use any of these nicotine containing products: None How often do you have a drink containing alcohol: never How often do you have six or more drinks on one occasion: Never AUDIT-C Alcohol total score: 0 Non-prescribed substance use: denies use Caffeine: Yes How often does anyone, including family, friends and others, physically hurt you: never How often does anyone, including family, friends and others, insult or talk down to you: never How often does anyone, including family, friends and others, threaten you with harm: never How often does anyone, including family, friends and others, scream or curse at you: never Exam Narrative: Exam Narrative: General: well nourished , appears uncomfortable Head: Atraumatic and normocephalic ENT: External ears and external nose are normal Eyes: Conjunctiva clear, pupils are equal reactive, external ocular motions are intact Neck: Full spontaneous range of motion of the neck Lungs: No respiratory distress Abdomen: Palpable mass just below umbilicus Musculoskeletal: No tenderness or deformity Neurologic: No gross focal neurologic deficits Skin: No rashes Psych: Mood and affect are appropriate Const: Vital Signs, click to edit/add: Vital Signs - 24 hr 10/08/24 00:30 Temperature 96.4 F L Pulse Rate [Right Pulse Oximeter] 104 H Respiratory Rate 20 Blood Pressure [Ri ght Upper Arm] 182/100 H Pulse Oximetry 96 Oxygen Delivery Me thod Room Air Course Course ED Course: Review of chart shows that on October 07 patient underwent left shoulder rotator cuff repair along glenohumeral debridement subacromial decompression and partial acromioplasty under general anesthesia. Patient seen examined, presents today with urinary retention. On exam, palpable bladder just below the umbilicus. Catheter ordered, difficult placement but will motion place with large volume of nonbloody urine obtained. Patient will be started on Flomax, discharged with catheter in place on follow-up with Urology or primary care for voiding trial next week. Vital Signs Vital signs: Initial Vital Signs Temperature 96.4 F L 10/08/24 00:30 Temperature Source Temporal Artery Scan 10/08/24 00:30 Pulse Rate 104 H 10/08/24 00:30 Respiratory Rate 20 10/08/24 00:30 Blood Pressure 182/100 H 10/08/24 00:30 Blood Pressure Mean 127 H 10/08/24 00:30 Blood Pressure Position Semi-Fowlers 10/08/24 00:30 Pulse Oximetry 96 10/08/24 00:30 Oxygen Delivery Method Room Air 10/08/24 00:30 Vital Signs Temperature 96.4 F L 10/08/24 00:30 Pulse Rate 104 H 10/08/24 00:30 Respiratory Rate 20 10/08/24 00:30 Blood Pressure 182/100 H 10/08/24 00:30 Pulse Oximetry 96 10/08/24 00:30 Oxygen Delivery Method Room Air 10/08/24 00:30 Temperature 96.4 F L 10/08/24 00:30 Pulse Rate 104 H 10/08/24 00:30 Respiratory Rate 20 10/08/24 00:30 Blood Pressure 182/100 H 10/08/24 00:30 Pulse Oximetry 96 10/08/24 00:30 Oxygen Delivery Method Room Air 10/08/24 00:30 Discharge Plan Discharge Clinical Impression: Acute urinary retention Patient Disposition: Home, Self-Care Instructions: How to Change a Catheter Drainage Bag (DC) Additional Instructions: Take Flomax as prescribed Follow-up with Urology or primary care in 1 week for catheter removal and voiding trial Activity Level: No Restrictions Discharge Diet: Regular Prescriptions: New tamsulosin [Flomax] 0.4 mg capsule 0.4 mg PO QHS Qty: 30 0RF No Action fluticasone propionate 50 mcg/actuation spray,suspension 1 spray intranasal BID PRN (Reason: nasal congestion) Qty: 48 3RF propranolol 10 mg tablet 10 - 40 mg PO .COMPLEX PRN (Reason: anxiety) Qty: 90 1RF Rx Instructions: 10 - 40 mg PO PRN; Take 10-40 mg 1/2 hr prior to public speaking. sennosides-docusate sodium [Senna-S] 8.6-50 mg tablet 1 tab-cap PO BID Qty: 30 1RF Rx Instructions: Take while using narcotics. If loose stools, then stop this medication. ondansetron 4 mg tablet,disintegrating 4 mg PO Q8H PRN (Reason: nausea and vomiting) Qty: 15 1RF oxycodone 5 mg tablet 5 mg PO Q4-8H PRN (Reason: pain) Qty: 25 0RF hydrocodone-acetaminophen 5-325 mg tablet 1 tab PO QDAY PRN (Reason: pain) Qty: 30 0RF Follow Up/Referrals: Dada Corrales MD [Primary Care Provider, Family Practice] Stand Alone Forms: MyHealth Info Instructions
--- OUTSIDE RECORDS SUMMARY | 2024-10-08 00:25 | XMS_ITS | Data Portability ---
Author Organization [facility], [facility] Address [address] [place] [address] Care Team Providers Care Rehab Therapist Name Role Phone MARTHA CABELLO Primary Care Provider Assessment No assessment recorded. Plan of Treatment Reminders Order Date Submit Date Provider Last Modified By Organization Details Last Modified Time Details Appointments None recorded. Lab PSA, serum or plasma 2023 024 [facility], [address], [place], [address], 4 15:39:53 PSA, total, serum or plasma 2023 024 [email or web address] 2 [facility], [address], [place], [address], 4 10:53:40 PSA, serum or plasma 2022 023 [facility], [address], [place], [address], 3 12:00:53 urinalysis , dipstick 2022 023 [facility], [address], [place], [address], 3 12:00:52 testostero ne, free + total, serum 2022 023 [email or web address] 30 [facility], [address] [place], [address], 3 08:50:00 Referral None recorded. Procedures None recorded. Surgeries None recorded. Imaging XR, kidney + ureter + bladder 2022 023 [email or web address] 30 Not available 3 10:35:37 Medication Orders Myrbetriq 50 mg tablet,ext ended release 2022 023 [id number] [address] [place], [place], [phone], 4 15:10:01 Patient TargetsNo targets recorded. Patient InstructionsNo instructions recorded. Reason for Referral None Reported. Results Created Date Observation Date Name Description Value Unit Range Abnormal Flag Note LastModifiedBy Organization Detail LastModifiedTime 06/11/1906/11/2022 PSA, serum or plasm a PSA 1.6 ng/mL 0-4.0 Not Available [facility] [address], [place], [address], 06/11/2022 12:00:14 06/11/1906/11/2022 urina lysis , dipst ick Color-Status Yellow Not Available [facility] [address], [place], [address], 06/11/2022 12:00:15 06/11/1906/11/2022 urina lysis , dipst ick Clarity-Stat us Clear Not Available [facility] [address], [place], [address], 06/11/2022 12:00:15 06/11/1906/11/2022 urina lysis , dipst ick pH-Status 5.0 Not Available [facility] [address], [place], [address], 06/11/2022 12:00:15 06/11/1906/11/2022 urina lysis , dipst ick Nitrates-Sta tus negati ve Not Available [facility] [address], [place], [address], 06/11/2022 12:00:15 06/11/19 23 06/11/2022 urina lysis , dipst ick Blood-Status Trace Not Available [facility] [address], [place], [address], 06/11/2022 12:00:15 06/11/19 23 06/11/2022 urina lysis , dipst ick Leuko-Status Negati ve Not Available [facility] [address], [place], [address], 06/11/2022 12:00:15 07/22/19 24 07/22/2023 PSA, serum or plasm a PSA 2.0 ng/mL 0-4.0 Not Available [facility] [address], [place], [address], 07/22/2023 15:04:05 06/12/1906/11/2022 bladd er scan (PROC ) No observ ation record ed. BARCODE Not Available 2022 08:57:22 07/22/1907/22/2023 XR, kidne y + urete r + bladd er EXAM: XR, KIDNEY + URETER + BLADDE R LOCATI ON: [facility] [place] DATE: 07/22/19 INDICA TION: Calcul us of kidney COMPAR LELA: None. IMPRES CYN: Negati ve abdome n. Bowel gas patter n is normal . Nothin g for obstru ction or free air. No eviden ce for renal stones . This report was electr onical ly interp reted by: Glynn Vogel MD on 2023 at 14:02 [facility] [place] [address], [place], [address], 07/23/2023 12:20:45 Result Notes None recorded. 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 Procedures Surgical History Date Name Laterality Status Provider Name and Address Organization Details Recorded Time 4 [employer]/blood draw completed Edis Lai MD [address] [place] [address],[address] [place] [address], [address], [facility] 07/22/2023 15:11:22 4 Bladder Scan completed Edis Lai MD [address] [place] [address],[address], [address], [facility] 07/22/2023 15:11:03 3 [employer]/blood draw completed Edis Lai MD [address] [place] [address],[address], [address], [facility] 06/11/2022 11:59:57 3 Bladder Scan completed Edis Lai MD [address] [place] [address],[address], [address], [facility] 06/11/2022 11:59:51 Orthopedic Surgery completed Edis Lai MD [address] [place] [address],[address], [place], [address], [facility] 06/11/2022 11:58:38 Imaging Results Imaging Date Name Status LastModified by Organiz ation Details LastModified Time 06/11/2022 bladder scan (PROC) completed BARCODE Information not available 06/12/2022 08:57:22 07/22/2023 XR, kidney + ureter + bladder completed [facility] [place] [address] [address], [place], [address], 07/23/2023 12:20:45 Procedure Notes None recorded. Medical Equipment None Reported. Allergies Allergen ID Allergen Name Allergen Category Reaction Reaction Severity Criticality Documentation Date Start Date Code Code System Note Provider Name and Address Organization Details Recorded Time 305698 Product containin g penicilli n (product) medicatio n Not available Not available Not available 06/11/2022 28457 8001 SNOMED Edis Lai MD [address], [address], [facility] 11:57:02 Medications Name Sig Start Date Stop Date Status Note LastModified by Organization Details LastModified Time silver sulfadiazin e 1 % topical cream APPLY TOPICALLY TO THE AFFECTED AREA TWICE DAILY FOR 5 DAYS. APPLY A 1.5 MM THICKNESS 06/11 completed Not Available Not Available Not Available hydrocodone 5 mg-acetamin ophen 325 mg tablet TAKE 1 TABLET BY MOUTH EVERY DAY NEEDED FOR PAIN active Not Available Not Available No t Available propranolol 10 mg tablet TAKE 1 TO 4 TABLETS 1/2 HOURS PRIOR TO PUBLIC SPEAKING active Not Available Not Available No t Available prednisolon e acetate 1 % eye drops,suspe nsion SHAKE LIQUID AND INSTILL 1 DROP IN RIGHT EYE FOUR TIMES DAILY DIRECTED 07/21 completed Not Available Not Available Not Available neomycin-po lymyxin-dex ameth 3.5 mg/mL-10,00 0 unit/mL-0.1 % eye drops SHAKE LIQUID AND INSTILL 1 DROP IN RIGHT EYE FOUR TIMES DAILY FOR 10 DAYS 07/21 completed Not Available Not Available Not Available fluticasone propionate 50 mcg/actuati on nasal spray,suspe nsion SHAKE LIQUID AND USE 1 SPRAY IN EACH NOSTRIL TWICE DAILY NEEDED FOR NASAL CONGESTIO N active Not Available Not Available No t Available diazepam 5 mg tablet TAKE 1 TABLET BY MOUTH 1/2 HOUR BEFORE MRI AND MAY REPEAT ONE TIME 06/11 completed Not Available Not Available Not Available Myrbetriq 50 mg tablet,exte nded release Take 1 tablet every day by oral route. 07/21 completed Not Available Not Available Not Available Vitals Date Recorded Body height Body mass index (BMI) Body weight Provider Name and Address Organization Details Last Updated DateTime 06/11/2022 182.88 cm 24 kg/m2 87621.85 g Edis Lai MD [address], [place], [address], [facility] 06/11/2022 11:56:43 Date Recorded Body height Body mass index (BMI) Body weight Provider Name and Address Organization Details Last Updated DateTime 07/22/2023 182.88 cm 24 kg/m2 88098.85 g Edis Lai MD [address] [place] [address],[address], [place], [address] [place] [address] U[facility] 07/22/2023 15:02:50 Social History Question Answer Notes LastModified by Organizat [email or web address] Details LastModified Time Tobacco Smoking Status Never Smoker Edis Lai MD [address] [place] [address],[address] [place] [address], [facility] 06/11/2022 11:58:24 What Is Your Level Of Caffeine Consumption? Moderate Information not available 06/11/2022 Marital Status Unknown [email or web address] Informati on not available 10/29/2019 What Was The Date Of Your Most Recent Tobacco Screening? 07/22/2023 Information not available 07/22/2023 Sex: Unknown Functional Status Question Answer Note LastModified by Organizat [email or web address] Details LastModified Time Do you use any illicit or recreational drugs? No Information not available 06/11/2022 What is your level of alcohol consumption? None Information not available 06/11/2022 Mental Status None recorded. Family History Relationship Description Onset Age of this Age Resolved Age Notes LastModified by Organization Details LastModified Time Mother Family history of breast cancer Not available 2022 11:57:46 Mother Family history of Hypertension Not available 11:57:50 Maternal Uncle Family history of malignant neoplasm brain Not available 2022 11:58:09 Medical History Condition Response Diabetes N Sexually Transmitted Infection N Bleeding Disorder N Other High Blood Pressure Y Kidney Stones Y High Cholesterol N GERD/Acid Reflux Y Heart Disease N Cancer N Lung Disease N Depression N Immunizations Vaccine Type Date Status Note Provider Nam e and Address Organization Details Recorded Time Influenza, split virus, quadrivalent, preservative 0 completed Edis Lai MD [address],[facility] [address], [place], [address], [facility] 07/22/2023 15:02:58 Influenza, split virus, quadrivalent, preservative 5 completed Edis Lai MD [address] [place] [address],[address], [place], [address], [facility] 07/22/2023 15:02:58 Influenza, split virus, quadrivalent, preservative 8 completed Edis Lai MD [address] [place] [address],[address], [place], [address], [facility] 07/22/2023 15:02:58 Influenza, split virus, quadrivalent, preservative 6 completed Edis Lai MD [address] [place] [address],[address], [place], [address], [facility] 07/22/2023 15:02:58 Influenza, split virus, quadrivalent, preservative 9 completed Edis Lai MD [address] [place] [address],[address], [place], [address], [facility] 07/22/2023 15:02:58 Influenza, MDCK, quadrivalent, PF 3 completed Edis Lai MD [address] [place] [address],[address], [place], [address], [facility] 07/22/2023 15:02:58 Influenza, MDCK, quadrivalent, preservative 1 completed Edis Lai MD [address] [place] [address],[address], [place], [address], [facility] 07/22/2023 15:02:58 Influenza, MDCK, quadrivalent, preservative 2 completed Edis Lai MD [address] [place] [address],[address], [place], [address], [facility] 07/22/2023 15:02:58 zoster recombinant 0 completed Edis Lai MD [address] [place] [address],[address], [place], [address], [facility] 07/22/2023 15:02:58 zoster recombinant 0 completed Edis Lai MD [address] [place] [address],[address], [place], [address], [facility] 07/22/2023 15:02:58 COVID-19, mRNA, LNP-S, PF, 100 mcg/0.5mL dose or 50 mcg/0.25mL dose 2 completed Edis Lai MD [address] [place] [address],[address], [place], [address], [facility] 07/22/2023 15:02:58 COVID-19, mRNA, LNP-S, PF, 30 mcg/0.3 mL dose 1 completed Edis Lai MD [address] [place] [address],[address], [place], [address], [facility] 07/22/2023 15:02:58 COVID-19, mRNA, LNP-S, PF, 30 mcg/0.3 mL dose 1 completed Edis Lai MD [address] [place] [address],[address], [place], [address], [facility] 07/22/2023 15:02:58 COVID-19, mRNA, LNP-S, PF, 30 mcg/0.3 mL dose 1 completed Edis Lai MD [address] [place] [address],[address], [place], [address], [facility] 07/22/2023 15:02:58 COVID-19, mRNA, LNP-S, bivalent, PF, 30 mcg/0.3 mL dose 2 completed Edis Lai MD [address] [place] [address],[address], [place], [address], [facility] 07/22/2023 15:02:58 COVID-19, mRNA, LNP-S, PF, ninfa-sucrose, 30 mcg/0.3 mL 3 completed Edis Lai MD [address] [place] [address],[address], [place], [address], [facility] 07/22/2023 15:02:58 Tdap 0 completed Edis Lai MD [address] [place] [address],[address], [place], [address], [facility] 07/22/2023 15:02:58 Tdap 3 completed Edis Lai MD [address] [place] [address],[address], [place], [address], [facility] 07/22/2023 15:02:58 Tdap 2 completed Edis Lai MD [address] [place] [address],[address], [place], [address], [facility] 07/22/2023 15:02:58 Influenza, split virus, trivalent, preservative 1 completed Edis Lai MD [address] [place] [address],[address], [place], [address], [facility] 07/22/2023 15:02:58 Influenza, split virus, trivalent, preservative 0 completed Edis Lai MD [address] [place] [address],[address], [place], [address], [facility] 07/22/2023 15:02:58 Influenza, split virus, quadrivalent, PF 4 completed Edis Lai MD [address] [place] [address],[address] [place] [address], [address], [facility] 07/22/2023 15:02:58 Influenza, split virus, quadrivalent, PF 3 completed Edis Lai MD [address] [place] [address],[address] [place] [address], [address], [facility] 07/22/2023 15:02:58 Influenza, split virus, quadrivalent, PF 9 completed Edis Lai MD [address] [place] [address],[address], [address], [facility] 07/22/2023 15:02:58 Past Encounters Encounter ID Performer Location Encounter Start Date Encounter Closed Date Diagnosis/Indication Diagnosis SNOMED-CT Code Diagnosis ICD10 Code Diagnosis Note [id number] MD KATIANA Velásquez_Charl[facility] [address] [address] 06/11/2022 11:26:57 06/18/2022 11:05:42 Kidney stone 30200380 N20.0 1. Kidney calculi- has 3 mm Right (mid-pole) stone on CT scan (2018)- stone not seen on KUB in the past-obser ve - check CT scan (stone tech) if he develops flank pain- Follow-up in 1 year with [facility] Increased frequency of urination 263800895 R35.0 2. Urinary frequency- Bladder empties well (PVR = 8 mL)- try Myrbetriq 50 mg daily- F/U in 1 year Reduced libido 4370541 R 68.82 3. Low libido / energy- check AM Testostero ne (Free and Total) [id number] Edis Lai MD [facility] [address] [place] [address] 07/22/2023 14:54:53 07/22/2023 15:48:42 Kidney stone 82214553 N20.0 1. Kidney calculi- has 3 mm Right (mid-pole) stone on CT scan (2017)- reviewed KUB (07/22/23) images - no stone seen- 24 Hr urine study (11/22/16) - normal- observe - check CT scan (stone tech) if he develops flank pain- Follow-up in 1 year with KUB Increased frequency of urination 942352691 R35.0 2. Urinary frequency- Bladder empties well (PVR = 8 mL)- PSA (2.0) - increased slightly - monitor- F/U in 1 year with PSA and NA Reduced libido 5478903 R 68.82 H/O Low libido / energy- normal Testostero ne Health Concerns Section Related Observation LastModified by Organization Detai ls LastModified Time None Recorded Concern Status LastModified by Organization Details LastModified Time None Recorded Advance Directives Directive None Recorded Payers Insurance Date Sequence Insurance Name Policy Number Policy Benjamin Covered Member ID Benjamin Member ID Guarantor Name 07/26/2023 1 [employer] [id number] Ken Foy [id number] Ken Foy Notes Date Note Type Note Provider Name and Address Organization Details Recorded Time 06/11/2022 text/html 57 yo male with 1 year H/O trouble with urination (bladder pressure, difficulty urinating) and microscopic hematuria. CT Urogram (07/31/16) revealed a 3 mm stone in the Right kidney - Cystoscopy (10/08/16) was normal. He tried Rapaflo (trouble with ejaculation), Detrol LA 4 mg daily (no improvement) and Oxybutynin ER 5 mg daily (helped - had dry mouth) PMHx - Occular migraines, borderline HTN, Insomnia 06/11/22- He presents for follow-up on urination. He states his urination is worse since stopping Oxybutynin. He voids every 1 hours during the day and 2-3x/night. He reports hesitancy and slow stream in AM. He denies dysuria. He denies abdominal or flank pain. He does report a decrease in energy levels and libido over the past several months.- UA - trace blood - no LE- PVR = 8 mL- PSA - 1.6 PSA - 1.6 (06/11/22) 24 Hr urine (11/22/16) - all tests were within normal range- UO (2.01 L) - Calcium (239 mg) - Oxalate (23 mg) - Phosphate (1.438) - Citrate (791 mg) - Mg (120 mg) - Uric acid (0.524) CT scan (10/16/17) - Right - 3 mm stone (mid-pole) Edis Lai MD [address] [facility] [address], [place], [address], [facility] [place] [facility] 06/11/2022 13:34:47 07/22/2023 text/html 58 yo male with 1 year H/O trouble with urination (bladder pressure, difficulty urinating) and microscopic hematuria. CT Urogram (07/31/16) revealed a 3 mm stone in the Right kidney - Cystoscopy (10/08/16) was normal. He tried Rapaflo (trouble with ejaculation), Detrol LA 4 mg daily (no improvement), Oxybutynin ER 5 mg daily (helped - had dry mouth), and Myrbetriq 50 mg daily (no change). PMHx - Occular migraines, borderline HTN, Insomnia06/11/22- He presents for follow-up on urination. He states his urination is worse since stopping Oxybutynin. He voids every 1 hours during the day and 2-3x/night. He reports hesitancy and slow stream in AM. He denies dysuria. He denies abdominal or flank pain. He does report a decrease in energy levels and libido over the past several months. 07/22/23 - He presents for follow-up on urination and kidney stones. He denies abdominal or flank pain. He voids every 2-3 hours during the day and 0-2x/night. He notes hesitancy and slow stream in AM.- PVR - 0 mL- PSA - 2.0- KUB - no stones seen PSA - 1.6 (06/11/22)- 2.0 (07/22/23) Testosterone - 429 (06/26/22) 24 Hr urine (11/22/16) - all tests were within normal range- UO (2.01 L) - Calcium (239 mg) - Oxalate (23 mg) - Phosphate (1.438) - Citrate (791 mg) - Mg (120 mg) - Uric acid (0.524) CT scan (10/16/17) - Right - 3 mm stone (mid-pole) KUB (07/22/23) - no stones seen Edis Lai MD [address] [place] [address],[address], [place], [address], [facility] [place] [facility] 07/22/2023 15:47:07
[2024-10-08 00:30] VITALS: BP 182/100; PULSE 104; RESP 20; TEMP 35.8; O2SAT 96; BMI 3613.0
[2024-10-08 01:00] VITALS: BP 154/91; PULSE 101; RESP 18; O2SAT 96
[2024-10-08 01:09] LABS: Appearance Urine Cloudy (Clear); Bilirubin Urine Negative (Negative); Blood Urine Trace-intact (Negative); Color Urine Yellow (Yellow); Glucose Urine Negative (Negative); Ketones Urine Negative (Negative); Leukocyte Esterase Urine Negative (Negative); Nitrite Urine Negative (Negative); Protein Urine Negative (Negative); Specific Gravity Urine <= 1.005 (1.000-1.030); Urobilinogen Urine 0.2 (0.2-1.0)
[2024-10-08 01:12] LABS: RBC Urine 0-2 (0-2); Squamous Epithelial Cell Urine Few (None-Few); WBC Urine 0-2 (0-5)
== END 2024-10-08 01:20 | disposition home or self-care (01) ==
LOC: ED 01:13
PROVIDERS: Emergency Provider Family Medicine; PCP Family Medicine
DX: R33.9 Retention of urine, unspecified (principal)
CPT/HCPCS: 51702; 81001; 99283; 99284

== ENCOUNTER 2025-02-09 08:15 | Outpatient (RCR) | payer BC, SELFPAY | END 2025-04-29 15:48 | disposition home or self-care (01) | PROVIDERS: PCP Family Medicine; Visit Provider Orthopaedic Surgery Sports Medicine | DX: Z48.89 Encounter for other specified surgical aftercare (principal); Z51.89 Encounter for other specified aftercare | CPT/HCPCS: 97110; 97112; 97140; 97161; 97535 ==

== ENCOUNTER 2025-03-25 07:37 | Outpatient (CLI) | payer BC, SELFPAY | END 2025-03-25 07:38 | disposition home or self-care (01) | LOC: NFLDREF 03-29 03:25 | PROVIDERS: PCP Family Medicine; Referring Provider Family Medicine; Visit Provider Family Medicine | DX: E78.5 Hyperlipidemia, unspecified (principal); Z12.5 Encounter for screening for malignant neoplasm of prostate | CPT/HCPCS: 80053; 80061; G0103 ==